=== PATIENT | female | born 1985 | race Caucasian/White ===

== ENCOUNTER 2024-03-14 19:31 | Emergency (ER) | payer SELFPAY ==
[~2024-03-14] VITALS: Ht 147.3 cm; Wt 59.5 kg
[2024-03-14 19:55] VITALS: TEMP 98.2
[2024-03-14 20:30] VITALS: BP 144/82; PULSE 87
== END 2024-03-14 20:30 | disposition home or self-care (01) ==
LOC: COL.ER 19:31
DX: R03.0 Elevated blood-pressure reading, without diagnosis of hypertension (principal); F17.210 Nicotine dependence, cigarettes, uncomplicated